=== PATIENT | male | born 1935 | race Caucasian/White ===

== ENCOUNTER → 2017-12-01 | Outpatient (CLI) | payer MEDICARE, OTHER ==
[~2017-12-01] MED LIST: FURO20 PO; HYDMOR2 PO; HYDR1TAB94 PO; IBUP800 PO; LEVCAR2510 PO; METF500 PO; ONDA4 PO; POTCHL10ER PO; PRAM.125 PO; PRAM.5 PO; ROSU5 PO; TAMS.4ER PO; Tylenol325 MG PO; WARF3 PO; WARF5 PO
== END | disposition home or self-care (01) ==
LOC: LAB SHORT 12:04 → PLD 12:04
DX: D48.5 Neoplasm of uncertain behavior of skin (principal)
CPT/HCPCS: 88305

== ENCOUNTER → 2017-12-11 | Outpatient (CLI) | payer MEDICARE, OTHER | LOC: LAB SHORT 07:23 → PLD 07:23 | DX: C44.310 Basal cell carcinoma of skin of unspecified parts of face (principal) | CPT/HCPCS: 88305 ==

== ENCOUNTER → 2018-12-01 | Outpatient (CLI) | payer MEDICARE, OTHER | END | disposition home or self-care (01) | LOC: LAB SHORT 11:13 → PLD 11:13 | DX: D48.5 Neoplasm of uncertain behavior of skin (principal) | CPT/HCPCS: 88305 ==

== ENCOUNTER → 2019-01-04 | Outpatient (CLI) | payer MEDICARE, OTHER | END | disposition home or self-care (01) | LOC: LAB SHORT 07:59 → PLD 07:59 → LAB EV 07:59 | DX: C44.319 Basal cell carcinoma of skin of other parts of face (principal); L57.0 Actinic keratosis | CPT/HCPCS: 88305 ==

== ENCOUNTER → 2019-01-06 | Outpatient (CLI) | payer MEDICARE, OTHER | END | disposition home or self-care (01) | LOC: LAB SHORT 14:28 → LAB 14:28 | DX: C44.310 Basal cell carcinoma of skin of unspecified parts of face (principal) | CPT/HCPCS: 88305 ==

== ENCOUNTER → 2019-06-09 | Outpatient (CLI) | payer MEDICARE, OTHER | END | disposition home or self-care (01) | LOC: LAB SHORT 13:55 → PLD 13:55 | DX: D22.5 Melanocytic nevi of trunk (principal) | CPT/HCPCS: 88305 ==

== ENCOUNTER → 2019-06-21 | Outpatient (CLI) | payer MEDICARE, OTHER | END | disposition home or self-care (01) | LOC: PLD 13:50 → LAB SHORT 13:50 | DX: D22.5 Melanocytic nevi of trunk (principal) | CPT/HCPCS: 88305 ==

== ENCOUNTER 2020-06-27 08:25 | Day surgery (SDC) | payer MEDICARE, OTHER ==
[~2020-06-27] VITALS: Ht 177.8 cm; Wt 108.0 kg
[~2020-06-27 08:25] MED LIST changes: +ACET500 PO; +ATOR20 PO; +CALCIUM CIT 311 EACH PO; +CARBLEV25 PO; +CARBLEV25 SL; +DOCU100 PO; +FISH OIL 1,2001 EAC7 PO; +LOSA25 PO; +MELATONIN5 M1 PO; +METF500C PO; +ZONI100 PO
--- NOTE | 2020-06-27 09:09 | NUR ---
History, Chart, Medications and Allergies reviewed before start of procedure. Patient confirms NPO status and agrees with scheduled surgery. Lungs clear T/O to Auscultation.
--- NOTE | 2020-06-27 18:40 | NUR ---
SHIFT SUMMARY PT A&OX4, VSS, CBG CNI, S/P L TKA, AQUACEL/RENY/POLAR SARAH/TEDS/SCDS. PAIN MANAGED PER EMAR. BAIRON PO, DENIES N&V. PHYSICAL THERAPY EVAL'D; UP TO CHAIR W/FWW,GB & MOD ASSIST. AWAITING POST-OP VOID; URINAL WITHIN REACH. WILL REPORT TO ONCOMING NOC PELON.
--- NOTE | 2020-06-28 04:06 | NUR ---
SHIFT SUMMARY POD 1 LEFT TKA, DRESSING CDI W/POLAR SARAH AND SCDS IN PLACE. PAIN MANAGED WITH 2 OXY. BAIRON PO INTAKE, DENIES N/V. IS VOIDING. SPENT MOST OF SHIFT IN CHAIR PER PT PREFERENCE. RLE ELEVATED ON PILLOWS WITH KNEE IN "FLAT POSITION." 4+ PITTING EDEMA TO LEFT FOOT NOTED, ELEVATED WITH EXTRA PILLOWS. IVF/ABX INFUSED PER ORDERS. PLAN TO AMBULATE, WORK WITH THERAPY, AND FOR POSSIBLE D.C HOME TODAY. WILL CONT TO MONITOR AND GIVE REPORT TO ONCOMING RN.
[2020-06-28 05:04] LABS: BASOPHILS ABSOLUTE AUTO 0.02 K/mm3 (0.00-0.23); BASOPHILS PERCENT AUTO 0 % (0-2); EOSINOPHILS ABSOLUTE AUTO 0.08 K/mm3 (0.00-0.68); EOSINOPHILS PERCENT AUTO 1 % (0-6); Hematocrit 35.4 % (37.0-53.0); Hemoglobin 11.1 g/dL (13.5-17.5); IMMATURE GRAN ABSOLUTE AUTO 0.05 K/mm3 (0.00-0.10); IMMATURE GRAN PERCENT AUTO 1 % (0-1); LYMPHOCYTES ABSOLUTE AUTO 1.06 K/mm3 (0.84-5.20); LYMPHOCYTES PERCENT AUTO 12 % (21-46); MONOCYTES PERCENT AUTO 12 % (4-13); Mean Corpuscular HGB 31.4 pg (26.0-34.0); Mean Corpuscular HGB Conc 31.4 g/dL (31.5-36.5); Mean Corpuscular Volume 100 fL (80-100); Mean Platelet Volume 10.5 fL (9.1-12.4); NEUTROPHILS PERCENT AUTO 74 % (41-73); Platelet Count 161 K/mm3 (150-400); RDW Standard Deviation 51.7 fL (35.1-46.3); Red Blood Cell Count 3.54 M/mm3 (4.30-5.90); White Blood Cell Count 8.91 K/mm3 (4.00-11.30)
[2020-06-28 05:27] LABS: Anion Gap 4 mmol/L (6-16); Blood Urea Nitrogen 17 mg/dL (8-24); Bun/Creatinine Ratio 32.7 (12.0-20.0); CO2, Blood 28 mmol/L (21-32); Calcium, Blood 8.4 mg/dL (8.5-10.1); Chloride, Blood 108 mmol/L (98-108); Creatinine, Blood 0.52 mg/dL (0.60-1.20); Glomerular Filtration Rate >60 (60-); Glucose, Blood 106 mg/dL (70-99); Potassium, Blood 3.7 mmol/L (3.5-5.5); Sodium, Blood 140 mmol/L (136-145)
[2020-06-28 05:32] LABS: International Normalized Ratio 1.1; Prothrombin Time Results 11.7 Sec (9.7-11.5)
--- NOTE | 2020-06-28 06:02 | NUR ---
SWELLING TO LEFT FOOT HAS DECREASED TO 2+. WILL CONT TO MONITOR
[2020-06-28] MEDS ORDERED: ENOX40I SC (11:34)
[2020-06-28] MEDS ORDERED: SULTRIDS PO (11:35)
[2020-06-28] MEDS ORDERED: Percocet 5-3251 EACH PO (11:39)
--- NOTE | 2020-06-28 18:05 | NUR ---
SUMMARY PT REPORTS PAIN WELL CONTROLLED. PT HAS APPT WITH PHYICAL THERAPY AT 0900 ON 06/29/20 AND PATIENTS DAUGHTER WILL BE PRESENT TECHNICAL FELLOW. PT ANTICIPATES DISCHARGE HOME TOMORROW
[2020-06-29 04:30] LABS: International Normalized Ratio 1.62; Prothrombin Time Results 16.9 Sec (9.7-11.5)
--- NOTE | 2020-06-29 04:30 | NUR ---
SHIFT SUMMARY POD 2 LTKA AAOX4, PT AMBULATING TO RESTROOM WITH MINIMAL ASSIST. TOLERATING PO AND VOIDING, DENIES LIGHTHEADEDNESS OR DIZZINESS WITH AMBULATION PAIN MANAGED PER EMAR. PLAN IS TO WORK WITH THERAPY AND DISCHARGE TODAY.
--- NOTE | 2020-06-29 10:55 | NUR ---
PATIENT D/C'D HOME WITH FAMILY MEMBER AT THIS TIME; BOTH STATE UNDERSTANDING OF MEDS, PT/INR DRAW, LOVENOX, WOUND CARE, HHPT, F/U APPT, ETC. PATIENT STATES PO PAIN MED EFFECTIVE. TOLERATING PO. VOIDING. NO ACUTE CHANGES OR C/O.
--- NOTE | 2020-06-29 15:33 | NUR ---
06/29/20 Madison Thrasher VERIFICATIONS: EDIT CHART.
== END 2020-06-29 10:55 | disposition home or self-care (01) ==
LOC: ORSCMMR 08:25 → ORD 09:45 → ORSCMMR 09:45 → ORD 11:30 → SURS 14:09 → ORSCMMR 06-29 10:55
PROVIDERS: Orthopaedic Surgery
PROC: 8E0Y0CZ Robotic Assisted Procedure of Lower Extremity, Open Approach (ICD-10-PCS; principal; 2020-06-27 09:45)
PROC: 0SRD0JA Replacement of Left Knee Joint with Synthetic Substitute, Uncemented, Open Approach (ICD-10-PCS; principal; 2020-06-27 09:45)
DX: M17.12 Unilateral primary osteoarthritis, left knee (principal); E11.9 Type 2 diabetes mellitus without complications; Z79.84 Long term (current) use of oral hypoglycemic drugs; Z79.899 Other long term (current) drug therapy; E66.9 Obesity, unspecified; Z68.34 Body mass index [BMI] 34.0-34.9, adult
CPT/HCPCS: 27447; S2900; 36415; 73560-LT; 80048; 82947; 85025; 85610; 88300; 97110; 97116; 97162; 97530; A9270; C1776; J0171; J0690; J0735; J1650; J1815; J1885; J2370; J2704; J2795; J3010; J7120

== ENCOUNTER 2020-07-10 21:56 | Inpatient (IN) | payer MEDICARE, OTHER ==
[~2020-07-10] VITALS: Ht 177.8 cm; Wt 92.8 kg
[~2020-07-10 21:56] MED LIST changes: +ENOX40I SC; +Percocet 5-3251 EACH PO; +SULTRIDS PO
[2020-07-10 22:31] LABS: Hematocrit 33.4 % (37.0-53.0); Hemoglobin 10.9 g/dL (13.5-17.5); Mean Corpuscular HGB 31.5 pg (26.0-34.0); Mean Corpuscular HGB Conc 32.6 g/dL (31.5-36.5); Mean Corpuscular Volume 97 fL (80-100); Mean Platelet Volume 10.1 fL (9.1-12.4); NRBC ABSOLUTE 0.02 K/mm3 (0.00-0.02); NRBC Auto 0.3 /100 WBC (0.0-0.2); Platelet Count 334 K/mm3 (150-400); RDW Standard Deviation 49.3 fL (35.1-46.3); Red Blood Cell Count 3.46 M/mm3 (4.30-5.90); White Blood Cell Count 6.02 K/mm3 (4.00-11.30)
[2020-07-10 22:35] LABS: Source, Urine Catheter
[2020-07-10 22:44] LABS: Alanine Aminotransfer (ALT/SGP 8 U/L (12-78); Albumin, Blood 2.8 g/dL (3.4-5.0); Albumin/Globulin Ratio 0.7 (0.8-1.8); Alk Phos 101 U/L (50-136); Anion Gap 7 mmol/L (6-16); Aspartate Aminotrans (AST/SGOT 25 U/L (12-37); Bilirubin, Total 0.5 mg/dL (0.1-1.0); Blood Urea Nitrogen 18 mg/dL (8-24); Bun/Creatinine Ratio 24.3 (12.0-20.0); CO2, Blood 25 mmol/L (21-32); Chloride, Blood 102 mmol/L (98-108); Creatinine, Blood 0.74 mg/dL (0.60-1.20); Globulin, Blood 4.1 g/dL (2.2-4.0); Glomerular Filtration Rate >60 (60-); Glucose, Blood 117 mg/dL (70-99); Potassium, Blood 4.2 mmol/L (3.5-5.5); Sodium, Blood 134 mmol/L (136-145); Total Protein, Blood 6.9 g/dL (6.4-8.2)
[2020-07-10 22:49] LABS: Appearance, Urine Clear (Clear); Bilirubin, Urine Neg (Neg); Blood, Urine 4+ (Neg); Color, Urine Amber (P-Yellow); Glucose Qualitative, Urine Neg (Neg); Ketones, Urine 2+ (Neg); Leukocyte Esterase, Urine 1+ (Neg); Nitrite, Urine Neg (Neg); Protein, Urine 2+ (Neg); Specific Gravity, Urine 1.015 (1.003-1.022); Urobilinogen, Urine 1+ (Normal)
[2020-07-10 22:53] LABS: BAND PERCENT MAN 1 % (0-8); BASOPHILS PERCENT MAN 0 % (0-2); EOSINOPHILS PERCENT MAN 0 % (0-6); LYMPHOCYTES ABSOLUTE MAN 0.66 K/mm3 (0.84-5.20); LYMPHOCYTES PERCENT MAN 11 % (21-46); MONOCYTES PERCENT MAN 10 % (4-13); MYELOCYTE ABSOLUTE MAN 0.06 K/mm3 (0.00-0.00); MYELOCYTE PERCENT MAN 1 % (0-0); NEUTROPHILS ABSOLUTE MAN 4.69 K/mm3 (1.96-9.15); SEG NEUTROPHILS PERCENT MAN 77 % (41-73); TOTAL CELLS COUNTED 100
[2020-07-10 22:57] LABS: Bacteria Mod /hpf; Mucus Light (0-Heavy); Red Blood Cells, Urine 25-50 /hpf (0-2); Squamous Epithelial Cells Not Seen /hpf (Few)
[2020-07-10 23:50] LABS: Influenza A, PCR Negative (NEGATIVE); Influenza B, PCR Negative (NEGATIVE); Resp Syncytial Virus, PCR Negative (NEGATIVE); SARS-Cov-2 (COVID-19) PCR, MMC Positive (NEGATIVE)
[2020-07-11 01:49] LABS: International Normalized Ratio 1.77; Prothrombin Time Results 18.3 Sec (9.7-11.5)
--- NOTE | 2020-07-11 03:43 | NUR ---
PATIENT ADMITTED TO THE COVID UNIT [facility]. ARRIVED IN [facility], USED SLIDER SHEET TO TRANFER TO BED. PATIENT IS AOX2, ABLE TO STATE NAME, , TOWN, AND MONTH. DID NOT KNOW DAY, YEAR, OR PLACE. WAS ABLE TO STATES HISTORY. RECENTLY HAD LEFT KNEE SURGERY. AT HOME HE HAS BEEN DOING WELL UP TO 24 HOURS AGO WHEN HIS MENTATION STARTED TO DECLINE, HAS GOTTEN REALLY FATIQUED, AND PAIN IN THE RIGHT FLANK AREA. 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 RIGHT FLANK IS TENDER ON PALPITATIONS. HE STATES CONTIENT OF URINE AND STOOL. DENIES BURNING ON URINATION. NO N/V, HEADACHE, BUT HAS DECREASE IN APPETITE. ON CT SCAN IT WAS NOTED THAT HE HAS SOME INFLITRATE IN THE LOWER LOBE. COVID TEST CAME BACK POSITIVE. HE DOES NOT KNOW HOW HE GOT IT. LUNG SOUNDS ARE DIMINISHED IN BASES, NO COUGH OR CONGESTION NOTED. HR REGULAR ON TELE. ABDOMIN SOFT, NON-TENDER, LAST BM 2 DAYS AGO. SKIN IS VERY HOT TO THE TOUCH, FEBRILE AT 101. REMOVED ALL CLOTHING, SMALL PRESSURE ULCER NOTED TO LEFT BOTTOCKS. LEFT KNEE WITH SILVERDENE DRESSING INTACT,NO DRAINAGE, A DRESSING TO THE SIDE OF THAT ONE ALSO CDI. BANDAID ON LEFT [place] CDI. BRUISING TO THE KNEE AND SWELLING, WARM TO TOUCH. NO N/T. STARTED IV FLUIDS AT 75ML/HR. GAVE TYLNOL FOR FEVER AND PAIN. WILL REASSESS. PATIENT VERY TIRED. CALL LIGHT IS IN REACH.
--- NOTE | 2020-07-11 05:22 | NUR ---
SHIFT SUMMARY: JOHN ARRIVED TO THE FLOOR LAST NIGHT FOR KIDNEY STONE, COVID 19. HE HAS RIGHT FLANK PAIN, FEBRILE AT 101, VERY WARM TO THE TOUCH, AND SOME CONFUSION. HE HAS BEEN COOPERATIVE AND PLEASANT. GAVE HIM TYLENOL WHICH HELPED TO BRING HIS FEVER DOWN. IVF WERE STARTED AT 75ML/HR. HE WAS TIRED THEREFORE SLEPT REST OF SHIFT. WILL GIVE DAYSHIFT REPORT. CALL LIGHT HAS REMAINED IN REACH.
[2020-07-11 06:29] LABS: BASOPHILS ABSOLUTE AUTO 0.01 K/mm3 (0.00-0.23); BASOPHILS PERCENT AUTO 0 % (0-2); EOSINOPHILS PERCENT AUTO 0 % (0-6); Hematocrit 31.2 % (37.0-53.0); Hemoglobin 10.1 g/dL (13.5-17.5); IMMATURE GRAN ABSOLUTE AUTO 0.22 K/mm3 (0.00-0.10); IMMATURE GRAN PERCENT AUTO 4 % (0-1); LYMPHOCYTES PERCENT AUTO 6 % (21-46); MONOCYTES ABSOLUTE AUTO 0.36 K/mm3 (0.16-1.47); MONOCYTES PERCENT AUTO 7 % (4-13); Mean Corpuscular HGB Conc 32.4 g/dL (31.5-36.5); Mean Corpuscular Volume 96 fL (80-100); Mean Platelet Volume 10.5 fL (9.1-12.4); NEUTROPHILS PERCENT AUTO 83 % (41-73); Platelet Count 320 K/mm3 (150-400); RDW Coefficient Variation 13.8 % (11.7-14.2); RDW Standard Deviation 49.3 fL (35.1-46.3); Red Blood Cell Count 3.26 M/mm3 (4.30-5.90); White Blood Cell Count 5.19 K/mm3 (4.00-11.30)
[2020-07-11 06:49] LABS: Alanine Aminotransfer (ALT/SGP 12 U/L (12-78); Albumin, Blood 2.5 g/dL (3.4-5.0); Albumin/Globulin Ratio 0.7 (0.8-1.8); Alk Phos 91 U/L (50-136); Anion Gap 8 mmol/L (6-16); Aspartate Aminotrans (AST/SGOT 23 U/L (12-37); Bilirubin, Total 0.5 mg/dL (0.1-1.0); Blood Urea Nitrogen 15 mg/dL (8-24); Bun/Creatinine Ratio 22.3 (12.0-20.0); CO2, Blood 24 mmol/L (21-32); Calcium, Blood 8.5 mg/dL (8.5-10.1); Chloride, Blood 103 mmol/L (98-108); Creatinine, Blood 0.67 mg/dL (0.60-1.20); Globulin, Blood 3.5 g/dL (2.2-4.0); Glomerular Filtration Rate >60 (60-); Glucose, Blood 112 mg/dL (70-99); Potassium, Blood 3.5 mmol/L (3.5-5.5); Sodium, Blood 135 mmol/L (136-145)
--- NOTE | 2020-07-11 13:16 | NUR ---
HE WORKED WITH OT AND IS SITTING IN THE CHAIR. ROUNDED. ADA DIET ORDERED AND HE HAS EATEN A LITTLE BUT INTERRUPTED HIS LUNCH TO VOID. HE HAS THE URINAL IN PLACE BUT IS HAVING DIFFICULTY STARTING THE STREAM. EARLIER HE VOIDED 325 MLS AND HAD A BLADDER SCAN RESIDUAL OF 292 MLS. THIS WAS REPORTED TO . HE AGREES TO JUST WATCH IT PREVIOUSLY ORDERED. PHOTOS TAKEN OF HIS L LEG. NEW AQUACEL DRESSING PUT ON OVER L KNEE INCISION. INCISION WNL, SWELLING AND BRUISING PRESENT. 2 LARGE BANDAIDS REPLACED ON LEG ALSO. WILL PHOTO HIS L BUTTOCK AFTER HE IS BACK IN BED. TELE NSR. NO SOB. HE IS ON RA.
--- NOTE | 2020-07-11 17:30 | NUR ---
HE IS UP IN THE CHAIR AGAIN. WE USED 2 ASSIST BUT HE COULD BE A 1 ASSIST TO TRANSFER. HE IS A&O. HE IS SLOW TO ANSWER QUESTIONS. HE IS PALE. NO DIAPHORESIS SINCE SHIFT CHANGE WHEN HE BROKE A FEVER. VSS.NO RESP. DISTRESS. TELE NSR. OT EVALUATED HIM TODAY BUT PT WILL EVALUATE HIM TOMORROW. L LEG DRESSING AND BANDAIDS CHANGED. FOAM PATCH PUT ON L BUTTOCK. SEE PHOTOS. I LEFT THE WEAVE BETWEEN HIS TOES ON BOTH FEET. NOC SHIFT RN SAID NO ULCERS BETWEEN HIS TOES. HE WAS BLADDER SCANNED 3 TIMES THIS SHIFT D/T NEW ORDER. HE VOIDS MORE THAN IS LEFTOVER. MD AWARE. HE HAS RECEIVED 1060 MLS IVF. THE LAST 500 MLS IS CURRENTLY INFUSING. HE C/O MILD R FLANK PAIN ONCE. NO OTHER COMPLAINTS. HE IS TIRED THOUGH. HE SLEPT MOST OF THE MORNING AND AWAKE MOST OF THE AFTERNOON.
--- NOTE | 2020-07-11 19:55 | NUR ---
ASSUMED CARE. DON IS DOING BETTER, MORE ALERT. UP IN CHAIR. WATCHING TV. STATES PAIN IS TOLERABLE AT THIS TIME. STILL SORE IN THE RIGHT FLANK, URINATING SOMETIMES WITH OUT WARNING BUT HAS USED THE URINAL SEVERAL TIMES. DRESSINGS ON LEG GOT CHANGED TODAY, BOTH ARE INTACT. LUNG SOUNDS DIMINISHED IN THE BASES, COUGH OCCATIONAL, REPORTS NO SOB AT THIS TIME. HR SINUS ON TELE. NO OTHER CONCERNS ARE NOTED AT THIS TIME. WILL CONTINUE TO MONITOR. CALL LIGHT IN REACH.
--- NOTE | 2020-07-12 05:08 | NUR ---
SHIFT SUMMARY: ESTELITA WAS MORE AWAKE THIS SHIFT, ABLE TO CALL FOR ASSISANCE. HE HAS TRIED TO MAINTAIN BEING CONTINENT BUT OCCATIONALLY HAS AN ACCIDENT. LUNGS ARE CLEAR WITH MILD DIMINISHED IN BASES. OCCATIONAL COUGH. VS WNL EXCEPT HE SPIKED A FEVER UP TO 102 THIS MORNING, TYLENOL WAS GIVEN, WHICH IS BRINGING IT BACK DOWN. APPETITE IS POOR. WEAKNESS IN BLE. DRESSINGS REMAINED INTACT. POST VOID RESIDUAL WAS 42, HAS BEEN URINATING WELL. RIGHT FLANK PAIN TOLERABLE. NO ACUTE CHANGES TO REPORT. CALL LIGHT IS IN REACH.
[2020-07-12 05:31] LABS: BASOPHILS ABSOLUTE AUTO 0.01 K/mm3 (0.00-0.23); BASOPHILS PERCENT AUTO 0 % (0-2); EOSINOPHILS PERCENT AUTO 0 % (0-6); Hematocrit 29.3 % (37.0-53.0); Hemoglobin 9.4 g/dL (13.5-17.5); IMMATURE GRAN ABSOLUTE AUTO 0.08 K/mm3 (0.00-0.10); IMMATURE GRAN PERCENT AUTO 2 % (0-1); LYMPHOCYTES ABSOLUTE AUTO 0.54 K/mm3 (0.84-5.20); LYMPHOCYTES PERCENT AUTO 13 % (21-46); MONOCYTES ABSOLUTE AUTO 0.53 K/mm3 (0.16-1.47); MONOCYTES PERCENT AUTO 12 % (4-13); Mean Corpuscular HGB 30.7 pg (26.0-34.0); Mean Corpuscular HGB Conc 32.1 g/dL (31.5-36.5); Mean Corpuscular Volume 96 fL (80-100); Mean Platelet Volume 10.2 fL (9.1-12.4); NEUTROPHILS PERCENT AUTO 73 % (41-73); Platelet Count 297 K/mm3 (150-400); RDW Coefficient Variation 14.1 % (11.7-14.2); RDW Standard Deviation 49.6 fL (35.1-46.3); Red Blood Cell Count 3.06 M/mm3 (4.30-5.90); White Blood Cell Count 4.26 K/mm3 (4.00-11.30)
[2020-07-12 05:40] LABS: International Normalized Ratio 1.53
[2020-07-12 05:45] LABS: Anion Gap 6 mmol/L (6-16); Blood Urea Nitrogen 20 mg/dL (8-24); Bun/Creatinine Ratio 27.2 (12.0-20.0); CO2, Blood 23 mmol/L (21-32); Calcium, Blood 8.5 mg/dL (8.5-10.1); Chloride, Blood 108 mmol/L (98-108); Creatinine, Blood 0.74 mg/dL (0.60-1.20); Glomerular Filtration Rate >60 (60-); Glucose, Blood 109 mg/dL (70-99); Potassium, Blood 3.5 mmol/L (3.5-5.5); Sodium, Blood 137 mmol/L (136-145)
--- NOTE | 2020-07-12 17:06 | NUR ---
SHIFT SUMMARY PT RESTING QUIETLY AT START OF SHIFT. WOKE EASILY FOR CARE. ASSISTED PT UP TO CHAIR FOR BREAKFAST; 2P ASSIST USING FWW AND GB. PT REMAINED IN RECLINER UNTIL AFTER LUNCH, WANTING TO GO BACK TO BED FOR NAP. PT ABLE TO WORK WITH P/T TODAY. EXERCISE SHEET GIVEN FOR PT TO PRACTICE ON HIS OWN. PT ATTEMPTS TO BE CONTINENT OF URINE, BUT HAS SOME DIFFICULTY USING URINAL IN BED ON HIS OWN. ATTENDS CHANGED NEEDED. PT IS VERY WEAK AND DECONDITIONED. STIFFNESS R/T PARKINSONS. PT REPORTED SOME PAIN TO R HIP WHEN WORKING WITH P/T TODAY. PT COMPENSATING FOR L KNEE RECENT SX THAT IS STILL HEALING. PT RECEIVING COUMADIN AGAIN, PER PHARMACY. PT ALSO STILL RECEIVING LOVENOX A BRIDGE UNTIL INR WNL'S. DR ARORA HERE TODAY TO SEE PT AND LATER CALLED PHARMACY TO VERIFY THAT PT IS TO RECEIVE BOTH COUMADIN AND LOVENOX AT THIS TIME. PT CURRENTLY ASSISTED UP TO CHAIR FOR DINNER; MOVING A LITTLE BETTER TONIGHT THAN THIS AM. CORRESPONDENCE TRANSCRIBER CALLED TODAY TO ASSIST PT WITH D/C PLANNING NEEDS. CALL LT IN REACH.
--- NOTE | 2020-07-12 19:40 | NUR ---
ASSUMED CARE. DON STATES HE IS DOING OK. LAYING IN BED WATCHING TV. PAIN IS THE SAME IN THE BACK TOLERABLE. LUNG SOUNDS CLEAR WITH DIMINISHED BASES. HE COUGHS WHEN HE TAKES A DEEP BREATH. ENCOURAGED DEEP BREATHING. NO PRODUCTION WITH COUGH. ABD SOFT BTX4, NO NAUSEA. USING THE URINAL OK NO PAIN ON URINATION. HR SINUS ON TELE. DENIES ANY NEEDS AT THIS TIME. DRESSING TO LEFT KNEE CDI. CALL LIGHT IS IN REACH. WILL MONITOR.
[2020-07-13 05:34] LABS: BASOPHILS ABSOLUTE AUTO 0.01 K/mm3 (0.00-0.23); BASOPHILS PERCENT AUTO 0 % (0-2); EOSINOPHILS ABSOLUTE AUTO 0.93 K/mm3 (0.00-0.68); EOSINOPHILS PERCENT AUTO 27 % (0-6); Hematocrit 30.6 % (37.0-53.0); Hemoglobin 9.7 g/dL (13.5-17.5); IMMATURE GRAN ABSOLUTE AUTO 0.15 K/mm3 (0.00-0.10); IMMATURE GRAN PERCENT AUTO 4 % (0-1); LYMPHOCYTES ABSOLUTE AUTO 0.59 K/mm3 (0.84-5.20); LYMPHOCYTES PERCENT AUTO 17 % (21-46); MONOCYTES ABSOLUTE AUTO 0.58 K/mm3 (0.16-1.47); MONOCYTES PERCENT AUTO 17 % (4-13); Mean Corpuscular HGB 30.5 pg (26.0-34.0); Mean Corpuscular HGB Conc 31.7 g/dL (31.5-36.5); Mean Corpuscular Volume 96 fL (80-100); Mean Platelet Volume 10.1 fL (9.1-12.4); NEUTROPHILS ABSOLUTE AUTO 1.18 K/mm3 (1.96-9.15); NEUTROPHILS PERCENT AUTO 34 % (41-73); Platelet Count 292 K/mm3 (150-400); RDW Coefficient Variation 14.5 % (11.7-14.2); RDW Standard Deviation 51.6 fL (35.1-46.3); Red Blood Cell Count 3.18 M/mm3 (4.30-5.90); White Blood Cell Count 3.44 K/mm3 (4.00-11.30)
[2020-07-13 05:48] LABS: International Normalized Ratio 1.62; Prothrombin Time Results 16.9 Sec (9.7-11.5)
[2020-07-13 05:57] LABS: Anion Gap 6 mmol/L (6-16); Blood Urea Nitrogen 15 mg/dL (8-24); Bun/Creatinine Ratio 23.2 (12.0-20.0); CO2, Blood 23 mmol/L (21-32); Calcium, Blood 8.4 mg/dL (8.5-10.1); Chloride, Blood 107 mmol/L (98-108); Creatinine, Blood 0.65 mg/dL (0.60-1.20); Glomerular Filtration Rate >60 (60-); Glucose, Blood 100 mg/dL (70-99); Potassium, Blood 3.4 mmol/L (3.5-5.5); Sodium, Blood 136 mmol/L (136-145)
--- NOTE | 2020-07-13 17:04 | NUR ---
PATIENT IS ALERT AND ORIENTED AND COOPERATIVE WITH CARE. PATIENT'S HEARING AID IS AND THIS RN COULD NOT FIND THE CORRECT SIZE BATTERY FOR IT. A NEW IV WAS PLACED TODAY. THE PATIENT IS ON RA. DIMINISHED LS. TELE IS SR. THE PLAN IS FOR THE PATIENT TO GO TO [facility] BEFORE GOING BACK HOME TO [facility] WITH INCREASED CAREGIVER HOURS. WILL CONTINUE TO MONITOR.
--- NOTE | 2020-07-13 19:10 | NUR ---
ASSUMED CARE RECEIVED REPORT FROM PELON GONZALEZ. ASSUMED CARE OF PT. PT RESTING COMFORTABLY, NO S/S ACUTE DISTRESS NOTED, RESPS E/U ON RA. DENIES NEEDS AT THIS TIME. CALL LIGHT, POSSESSIONS IN REACH, BED IN LOW POSITION, WITH ALARMS ON. WCTM.
[2020-07-14 05:33] LABS: BASOPHILS ABSOLUTE AUTO 0.02 K/mm3 (0.00-0.23); BASOPHILS PERCENT AUTO 0 % (0-2); EOSINOPHILS PERCENT AUTO 0 % (0-6); Hematocrit 30.6 % (37.0-53.0); Hemoglobin 9.9 g/dL (13.5-17.5); IMMATURE GRAN PERCENT AUTO 2 % (0-1); LYMPHOCYTES ABSOLUTE AUTO 0.52 K/mm3 (0.84-5.20); LYMPHOCYTES PERCENT AUTO 11 % (21-46); MONOCYTES ABSOLUTE AUTO 0.44 K/mm3 (0.16-1.47); MONOCYTES PERCENT AUTO 9 % (4-13); Mean Corpuscular HGB 30.7 pg (26.0-34.0); Mean Corpuscular HGB Conc 32.4 g/dL (31.5-36.5); Mean Corpuscular Volume 95 fL (80-100); Mean Platelet Volume 10.2 fL (9.1-12.4); NEUTROPHILS ABSOLUTE AUTO 3.59 K/mm3 (1.96-9.15); NEUTROPHILS PERCENT AUTO 77 % (41-73); Platelet Count 288 K/mm3 (150-400); RDW Coefficient Variation 14.4 % (11.7-14.2); RDW Standard Deviation 50.3 fL (35.1-46.3); Red Blood Cell Count 3.22 M/mm3 (4.30-5.90); White Blood Cell Count 4.67 K/mm3 (4.00-11.30)
[2020-07-14 05:47] LABS: International Normalized Ratio 2.08; Prothrombin Time Results 21.4 Sec (9.7-11.5)
[2020-07-14 06:00] LABS: Anion Gap 6 mmol/L (6-16); Blood Urea Nitrogen 16 mg/dL (8-24); Bun/Creatinine Ratio 25.3 (12.0-20.0); CO2, Blood 23 mmol/L (21-32); Calcium, Blood 8.8 mg/dL (8.5-10.1); Chloride, Blood 108 mmol/L (98-108); Creatinine, Blood 0.63 mg/dL (0.60-1.20); Glomerular Filtration Rate >60 (60-); Glucose, Blood 105 mg/dL (70-99); Potassium, Blood 3.7 mmol/L (3.5-5.5); Sodium, Blood 137 mmol/L (136-145)
--- NOTE | 2020-07-14 06:21 | NUR ---
SHIFT SUMMARY PT ASLEEP AT THIS TIME, APPEARS COMFORTABLE. WAS MONITORED T/O NIGHT WITH NEEDS MET. VS REVIEWED, STABLE, PT CONTINUES TO SPIKE TEMPS IN THE 100'S, RESPONSIVE TO TYLENOL ORDERED. O2 SATS STABLE ON RA, DENIES SOB, DYSPNEA. DRSG TO LT KNEE REMAINS C/D/I, NO INCREASE IN EDEMA NOTED. DENIES PAIN OR NEEDS AT THIS TIME. CALL LIGHT, POSSESSIONS IN REACH, BED IN LOW POSITION WITH ALARMS ON. WCTM, REPORT OFF TO ONCOMING RN.
--- NOTE | 2020-07-14 17:29 | NUR ---
1725 PT DISCHARGED TO [facility] VIA W/C TRANSPORT. IV REMOVED. D/C PACKET WITH INSULATION TECHNICIAN. BELONGINGS INCLUDING GLASSESS, BOTH HEARING AIDS, AND GOLD COLORED WATCH WITH PT. 1731 REPORT GIVEN TO JADON. NO NEW CHANGES OR CONCERNS.
== END 2020-07-14 17:15 | DRG 871 ==
LOC: ER 21:56 → MEDS 07-11 02:20
PROVIDERS: Emergency Medicine; Family Medicine; Pharmacist; ADMIT Internal Medicine
PROC: 8E0ZXY6 Isolation (ICD-10-PCS; principal; 2020-07-11)
DX: A41.89 Other specified sepsis (principal); J12.89 Other viral pneumonia; U07.1 COVID-19; G93.41 Metabolic encephalopathy; Z66 Do not resuscitate; L89.322 Pressure ulcer of left buttock, stage 2; E78.5 Hyperlipidemia, unspecified; E86.0 Dehydration; G20 Parkinson's disease; I10 Essential (primary) hypertension; Z86.711 Personal history of pulmonary embolism; Z96.652 Presence of left artificial knee joint; Z96.642 Presence of left artificial hip joint; N20.0 Calculus of kidney; M51.35 Other intervertebral disc degeneration, thoracolumbar region; Z79.01 Long term (current) use of anticoagulants; Z74.01 Bed confinement status; E11.40 Type 2 diabetes mellitus with diabetic neuropathy, unspecified
CPT/HCPCS: 0241U; 36415; 71045; 74176; 80048; 80053; 81001; 83880; 85025; 85610; 87086; 93005; 93010; 96365; 97110; 97116; 97162; 97166; 97530; 97535; 99285-25; A9270; J0696; J1100; J1650; J7030

== ENCOUNTER 2020-07-25 22:30 | Emergency (ER) | payer MEDICARE, OTHER ==
[~2020-07-25] VITALS: Ht 182.9 cm; Wt 90.7 kg
[2020-07-25] MEDS ORDERED: OXYCODONE-ACET1 EAC3 PO (23:15)
[2020-07-25 23:16] LABS: BASOPHILS ABSOLUTE AUTO 0.03 K/mm3 (0.00-0.23); BASOPHILS PERCENT AUTO 0 % (0-2); EOSINOPHILS ABSOLUTE AUTO 0.03 K/mm3 (0.00-0.68); EOSINOPHILS PERCENT AUTO 0 % (0-6); Hematocrit 30.4 % (37.0-53.0); Hemoglobin 9.5 g/dL (13.5-17.5); IMMATURE GRAN ABSOLUTE AUTO 0.28 K/mm3 (0.00-0.10); IMMATURE GRAN PERCENT AUTO 2 % (0-1); LYMPHOCYTES ABSOLUTE AUTO 1.38 K/mm3 (0.84-5.20); LYMPHOCYTES PERCENT AUTO 11 % (21-46); MONOCYTES ABSOLUTE AUTO 1.37 K/mm3 (0.16-1.47); MONOCYTES PERCENT AUTO 10 % (4-13); Mean Corpuscular HGB 29.2 pg (26.0-34.0); Mean Corpuscular HGB Conc 31.3 g/dL (31.5-36.5); Mean Corpuscular Volume 94 fL (80-100); NEUTROPHILS ABSOLUTE AUTO 10.07 K/mm3 (1.96-9.15); NEUTROPHILS PERCENT AUTO 77 % (41-73); Platelet Count 417 K/mm3 (150-400); RDW Coefficient Variation 15.1 % (11.7-14.2); RDW Standard Deviation 52.4 fL (35.1-46.3); Red Blood Cell Count 3.25 M/mm3 (4.30-5.90); White Blood Cell Count 13.16 K/mm3 (4.00-11.30)
[2020-07-25 23:35] LABS: Troponin I <0.015 ng/mL (0.000-0.040)
[2020-07-25 23:37] LABS: Alanine Aminotransfer (ALT/SGP <6 U/L (12-78); Albumin/Globulin Ratio 0.5 (0.8-1.8); Alk Phos 82 U/L (50-136); Anion Gap 6 mmol/L (6-16); Aspartate Aminotrans (AST/SGOT 14 U/L (12-37); Bilirubin, Total 0.5 mg/dL (0.1-1.0); Blood Urea Nitrogen 44 mg/dL (8-24); Bun/Creatinine Ratio 44.8 (12.0-20.0); CO2, Blood 25 mmol/L (21-32); Calcium, Blood 9.1 mg/dL (8.5-10.1); Chloride, Blood 109 mmol/L (98-108); Creatinine, Blood 0.98 mg/dL (0.60-1.20); Globulin, Blood 3.9 g/dL (2.2-4.0); Glomerular Filtration Rate >60 (60-); Glucose, Blood 158 mg/dL (70-99); Potassium, Blood 4.5 mmol/L (3.5-5.5); Sodium, Blood 140 mmol/L (136-145); Total Protein, Blood 5.9 g/dL (6.4-8.2)
[2020-07-25 23:51] LABS: Prothrombin Time Results 69.5 Sec (9.7-11.5)
[2020-07-25 23:53] LABS: International Normalized Ratio 7.27
[2020-07-26 00:51] LABS: Source, Urine Voided
[2020-07-26 00:53] LABS: Blood, Urine 4+ (Neg); Glucose Qualitative, Urine Neg (Neg); Ketones, Urine Neg (Neg); Leukocyte Esterase, Urine 1+ (Neg); Nitrite, Urine Neg (Neg); Protein, Urine 3+ (Neg); Specific Gravity, Urine 1.015 (1.003-1.022); Urobilinogen, Urine NORM (Normal)
[2020-07-26 01:03] LABS: Appearance, Urine Hazy (Clear); Bilirubin, Urine 2+ (Neg); Color, Urine Yellow (P-Yellow)
[2020-07-26 01:04] LABS: Amorphous Light (0-Heavy); Bacteria Mod /hpf; Red Blood Cells, Urine 0-2 /hpf (0-2); Squamous Epithelial Cells Few /hpf (Few)
[2020-07-26 01:05] LABS: Hyaline Casts 0-2 /lpf (0-2)
[2020-07-26 01:37] LABS: Influenza A, PCR Negative (NEGATIVE); Influenza B, PCR Negative (NEGATIVE); Resp Syncytial Virus, PCR Negative (NEGATIVE); SARS-Cov-2 (COVID-19) PCR, MMC Positive (NEGATIVE)
== END 2020-07-26 02:45 | disposition short-term general hospital (02) ==
LOC: ER 22:30
PROVIDERS: Emergency Medicine
DX: U07.1 COVID-19 (principal); K92.2 Gastrointestinal hemorrhage, unspecified; I95.9 Hypotension, unspecified; N39.0 Urinary tract infection, site not specified; R79.1 Abnormal coagulation profile; I10 Essential (primary) hypertension; E11.9 Type 2 diabetes mellitus without complications; Z86.711 Personal history of pulmonary embolism; Z79.01 Long term (current) use of anticoagulants; Z79.899 Other long term (current) drug therapy; Z87.891 Personal history of nicotine dependence
CPT/HCPCS: 0241U; 36430; 51702; 71045; 74177; 80053; 81001; 82272; 83605; 84484; 85025; 85610; 85730; 86850; 86900; 86901; 87040; 93005; 93010; 96361; 96365; 96375; 99285-25; J0696; J3430; J7030; P9059; Q9967

== ENCOUNTER 2020-09-10 17:40 | Emergency (ER) | payer MEDICARE, OTHER ==
[~2020-09-10] VITALS: Ht 177.8 cm; Wt 104.3 kg
[~2020-09-10 17:40] MED LIST changes: +OXYCODONE-ACET1 EAC3 PO
[2020-09-10 21:29] LABS: Source, Urine Catheter
[2020-09-10 21:31] LABS: Bilirubin, Urine Neg (Neg); Blood, Urine Neg (Neg); Glucose Qualitative, Urine Neg (Neg); Ketones, Urine 1+ (Neg); Leukocyte Esterase, Urine 1+ (Neg); Nitrite, Urine Neg (Neg); Protein, Urine Neg (Neg); Urobilinogen, Urine NORM (Normal)
[2020-09-10 21:45] LABS: Appearance, Urine Clear (Clear); Color, Urine Yellow (P-Yellow)
[2020-09-10 21:46] LABS: Bacteria Not Seen /hpf; Red Blood Cells, Urine Not Seen /hpf (0-2); Squamous Epithelial Cells Not Seen /hpf (Few); White Blood Cells, Urine Rare /hpf (0-5)
== END 2020-09-10 21:35 | disposition short-term general hospital (02) ==
LOC: ER 17:40
PROVIDERS: Physician Assistant
DX: S32.019A Unspecified fracture of first lumbar vertebra, initial encounter for closed fracture (principal); E11.9 Type 2 diabetes mellitus without complications; I10 Essential (primary) hypertension; E78.5 Hyperlipidemia, unspecified; Z86.16 Personal history of COVID-19; Z87.891 Personal history of nicotine dependence; Z87.442 Personal history of urinary calculi; Z79.01 Long term (current) use of anticoagulants; Z79.899 Other long term (current) drug therapy; W01.0XXA Fall on same level from slipping, tripping and stumbling without subsequent striking against object, initial encounter
CPT/HCPCS: 51702; 51798; 72080; 72131; 81001; 99285-25; A9270